=== PATIENT | female | born 1975 | race Asian ===

== ENCOUNTER → 2021-12-25 09:21 | Outpatient (CLI) | payer OTHER, SELFPAY ==
[2021-12-25 11:32] LABS: COVID19 -Nasal RAPID POSITIVE (Negative)
== END ==
PROVIDERS: Visit Provider Family Medicine Sleep Medicine
DX: Z20.822 Contact with and (suspected) exposure to COVID-19 (principal)
CPT/HCPCS: 87635; C9803

== ENCOUNTER → 2022-01-29 10:40 | Outpatient (CLI) | payer OTHER, SELFPAY ==
[2022-01-29 14:18] LABS: COVID19 -Nasal RAPID Negative (Negative)
== END ==
PROVIDERS: Visit Provider Family Medicine Sleep Medicine
DX: Z20.822 Contact with and (suspected) exposure to COVID-19 (principal)
CPT/HCPCS: 87635; C9803

== ENCOUNTER 2022-01-31 11:55 | Day surgery (SDC) | payer OTHER, SELFPAY ==
--- NOTE | 2021-12-25 18:08 | PM.PREOP ---
Pre-operative Note COVID-19 COVID-19 status: Negative Criteria for continued procedure: Expected advancement of disease process, Possibility delay results in more complex future surgery or treatment, Increased loss of function, Delay expected to result in less-positive ultimate med/surg outcome and Non-surgical alternatives not available or appropriate per current SOC Interval Note History & Physical reviewed/Exam performed by Physician: Yes Changes to H&P: Yes H&P completed within 30 days and has changed as indicated here:: Patient previously had surgery canceled due to COVID-19 restrictions on patient scheduling. When she was rescheduled she tested positive for COVID-19 virus without symptoms. She has now recovered and is ready to proceed with surgery and is now testing negative. Her medical history is significant for pre diabetes without eye findings, chronic cough hypertension migraine headaches Graves disease and gastric reflux with heartburn. She has no allergies. Her current review of systems is negative for any active complaints. She is a nonsmoker she has normal blood pressure and her lungs are clear her heart has regular rhythm. Her medications are losartan 100 mg a day, Sumatriptan 50 mg prn migraine, Cytomel 5 mcg bid,gabapentin 100 mg at hs,methocarbamol 500 mg 2 prn, Synthroid 137 mcg alt with 150 mcg a day, Botox injections for headaches,Prilosec 20 mg a day,Zyrtec 10 mg a day, Chloorpheniramine 4 mg a day prn, Miralex daily prn, Lasix 40 mg a day,Flonase 2 sprays per nostril a day, albuterol inhaler prn, tylenolol 100 mg pern, melatonin 10 mg prn, Colace 1 cap bid. She is stable for functional blepharoplasty with monitored anesthesia and local as planned.
--- NOTE | 2021-12-25 18:09 | PM.OP.1 ---
Operative Date/Time/Diagnoses Time of procedure: 14:15 Procedure & Clinicians Procedure: Date of service: January 31, 2022 Preoperative diagnoses: 1. 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 Patient feels she must lift her eyelids up in order to see. She has been pre approved for functional surgery through her insurance. 2. Pre diabetes now with A1c of 5.7 and no longer being monitored. 3. Graves disease in control 4. Hypertension 5. Gastric reflux 6. History of COVID positive PCR test December 24 2021 without symptoms. Now normal. Postoperative diagnoses: 1. Bilateral upper lid dermatochalasis Procedure: Bilateral upper blepharoplasty Surgeon: Harini Murphy MD Complications: None Specimen: None Blood loss: Less than 3 mL Anesthesia: Local infiltration with monitored standby. Anesthesiologist: Atul Zendejas M.D. Indications: Bilateral upper lids obstructing superior vision. Preoperative external photographs taken and loss of vision to within 2 mm of marginal light reflex. Functional surgery. Patient does have Graves disease but there is no evidence of asymmetrical eyelid inflammation and she is a candidate for standard blepharoplasty. Her surgery has been delayed due to the COVID-19 epidemic and her symptoms are increasing and she wishes to proceed with surgery at this time. She was prediabetic but last A1c was 5.7 and she is no longer being monitored. Procedure: In the preoperative holding area the amount skin and subcutaneous tissue to be removed was marked with indelible ink. The contours were carefully checked for symmetry and planned procedure discussed with the patient. The patient was taken to the operating room. IV sedation was given. Proparacaine drops were placed in both eyes for comfort. Local infiltration of anesthetic 2.5 cc into each upper lid, consisting of 1% xylocaine with epinephrine, normal saline and 1 cc hyluronidase was placed. This was then supplemented with full strength 2% xylocaine with epinephrine, 0.5% bupivacaine, and 1 cc hyalurondase. The face was prepped and draped in the usual manner. Attention was placed to the right upper lid. Using the previous peterson a number 15. Bard-Larry blade was used to incise a skin muscle flap. The flap was lifted and removed. Cautery was applied as needed. Contouring of the muscle belly was also performed. Exploration of the nasal and preoperneurotic fat pads were performed removal and contouring with hemostat and scissors as well as cautery were performed. The lid was then closed with running and interrupted 6 0 Vicryl sutures. Same procedure was repeated for the left upper lid. The Betadine was removed. Maxitrol ointment was placed to suture line. She returned to recovery room in stable condition. Instructions for postoperative cold packs were reviewed. Harini Murphy MD. Same procedure as scheduled: Yes
[2022-01-31 12:46] VITALS: BP 135/94; PULSE 73; RESP 16; TEMP 36.2; O2SAT 99; BMI 29.2
[2022-01-31] MEDS: METOCLOPRAMIDE 10 MG/2 ML INJ IV (13:27)
[2022-01-31] MEDS: PANTOPRAZOLE 40 MG VIAL 20 MG IV (13:32)
[2022-01-31] MEDS: LIDOCAINE 1% W/EPI 3 ML, SODIUM CHLORIDE 0.9% 2 ML, HYALURONIDASE 150 UNIT INJ (14:20)
[2022-01-31] MEDS: PROPARACAINE 0.5% OPHTH SOL 2 DROPS EYE-BOTH (14:25)
[2022-01-31] MEDS: NEOMYCIN/POLY/DEX OPHTH OINT 1 APPLIC EYE-BOTH (14:47)
[2022-01-31 15:30] VITALS: BP 121/80; PULSE 64; RESP 14; TEMP 36.8; O2SAT 100
== END 2022-01-31 15:45 | disposition home or self-care (01) ==
LOC: OR 12:03
PROVIDERS: PCP Family Medicine; Referring Provider Ophthalmology; Visit Provider Ophthalmology
PROC: (CPT 15823; principal; 2022-01-31 13:15)
DX: H02.834 Dermatochalasis of left upper eyelid (principal); H02.831 Dermatochalasis of right upper eyelid; R73.03 Prediabetes; I10 Essential (primary) hypertension; K21.9 Gastro-esophageal reflux disease without esophagitis; Z86.16 Personal history of COVID-19
CPT/HCPCS: 15823; C9113; J2765; J3470

== ENCOUNTER → 2023-02-23 10:48 | Outpatient (CLI) | payer OTHER, SELFPAY ==
--- NOTE | 2023-02-23 10:51 | DI.MRI.S_ITS ---
PROCEDURE: MR LUMBAR SPINE WO CON INDICATIONS: Radiculopathy, lumbar region TECHNIQUE: Noncontrast sagittal T1 spin echo and T2 fast echo, sagittal STIR, and T2 fast spin echo through the lumbar spine. In cases with scoliosis, additional coronal T2 fast spin echo may be performed. COMPARISON: None. FINDINGS: Image quality: Excellent. Alignment and Curvature: There is normal bony alignment. Bone Marrow: Marrow is of normal overall signal. No acute vertebral body compression fractures. Spinal Cord: Conus medullaris terminates at the top of L2 level. Visualized cord demonstrates normal signal and size. Paraspinous Soft Tissues: No paravertebral masses. T12-L1: Normal appearance. L1-L2: Normal appearance. L2-L3: Normal appearance. L3-L4: Normal appearance. L4-L5: Very mild left paracentral disc protrusion without canal stenosis. There is also a left foraminal annulus tear plus disc bulge. There is no significant associated foraminal narrowing. . Mild facet hypertrophy. L5-S1: Mild facet hypertrophy. Mild disc bulge. No canal stenosis or foraminal stenosis. IMPRESSION: 1. Very mild left paracentral disc protrusion at L4-L5 without canal stenosis. There is also a left foraminal annulus tear plus disc bulge without nerve root impingement. This finding can be associated with left L4 radiculitis in the acute setting. Alternatively, this can simply be an incidental finding. Question: Does this patient have symptoms of left L4 radiculitis? 2. Mild lower lumbar facet arthropathy. Dictated by: Chris Mayo M.D. on 02/25/2023 at 8:26 Approved by: Chris Mayo M.D. on 02/25/2023 at 8:30
== END ==
PROVIDERS: PCP Family Medicine; Referring Provider Family Medicine; Visit Provider Family Medicine
DX: M51.16 Intervertebral disc disorders with radiculopathy, lumbar region (principal); M47.26 Other spondylosis with radiculopathy, lumbar region
CPT/HCPCS: 72148